=== PATIENT | female | born 1970 | race Caucasian/White ===

== ENCOUNTER 2022-01-27 08:08 | Outpatient (CLI) | payer OTHER, SELFPAY ==
--- NOTE | 2022-01-27 08:15 | FL_ITS ---
Patient: DIMPLE CABALLERO Facility:?[facility] Patient ID:?[id number] Site Patient ID:?[id number]. Site :?[id number] Study:?XRay-Chest/Abd ESOPHOGRAM (DR RUVALCABA TO READ)-01/27/2022 9:06:48 AM Ordering Physician:?BLANCHE Final Report: Technique: Double-contrast esophagram performed after the uneventful administration of effervescent crystals and thick barium followed by thin barium. Fluoroscopy time 1 minutes 6 seconds. Indication: Dysphagia Comparison: None. Findings: Esophagus: Normal morphology and motility. No stricture or mass. Gastroesophageal reflux: Mild. Impression: Mild spontaneous reflux. No hernia or inflammation. Normal motility. Dictated by Isaías Ruvalcaba MD @ 01/27/2022 9:18:13 AM Signed by:?Isaías Ruvalcaba MD @01/27/2022 9:18:13 AM (Electronic Signature)
== END 2022-01-27 08:09 | disposition home or self-care (01) ==
LOC: RAD 08:10
PROVIDERS: PCP Family Medicine; Visit Provider Otolaryngology
DX: R13.10 Dysphagia, unspecified (principal); K21.9 Gastro-esophageal reflux disease without esophagitis
CPT/HCPCS: 74221

== ENCOUNTER 2022-07-18 13:24 | Outpatient (CLI) | payer OTHER, SELFPAY | END 2022-07-18 13:25 | disposition home or self-care (01) | PROVIDERS: PCP Family Medicine; Visit Provider Family Medicine | DX: Z00.00 Encounter for general adult medical examination without abnormal findings (principal); E55.9 Vitamin D deficiency, unspecified; E78.5 Hyperlipidemia, unspecified; Z13.6 Encounter for screening for cardiovascular disorders | CPT/HCPCS: 80048; 80061 ==

== ENCOUNTER 2022-09-08 15:13 | Outpatient (CLI) | payer OTHER, SELFPAY ==
--- NOTE | 2022-09-08 15:20 | CRLHL7_ITS ---
For Patients: As a result of the Century Cures Act, medical imaging exams and procedure reports are released immediately into your electronic medical record. You may view this report before your referring provider. If you have questions, please contact your health care provider. BILATERAL SCREENING MAMMOGRAM WITH COMPUTER-AIDED DETECTION AND TOMOSYNTHESIS TECHNIQUE: CC and MLO views were obtained. These mammographic images have been obtained using full-field digital technique. These mammographic images were interpreted with the benefit of computer-aided detection. Breast Tomosynthesis was used in this interpretation. COMPARISON FILM: 08/10/21, 05/05/20, 09/05/18. FINDINGS: There are scattered areas of fibroglandular density IMPRESSION: There is no radiographic evidence for malignancy. ASSESSMENT: BI-RADS Category 1: Negative RECOMMENDATION: Routine screening mammogram in 1 year. A lay language report of this examination will be provided to the patient. Isaías Dill M.D. Diagnostic Radiologist [email or web address] LINDSAY/Dictated by: Isaías Dlil MD @ 09/09/2022 11:48:00 AM (Electronically Signed)
== END 2022-09-08 15:14 | disposition home or self-care (01) ==
LOC: MAMMO 15:14
PROVIDERS: PCP Family Medicine; Visit Provider Family Medicine
DX: Z12.31 Encounter for screening mammogram for malignant neoplasm of breast (principal)
CPT/HCPCS: 77063; 77067